=== PATIENT | female | born 1945 | race Caucasian/White ===

== ENCOUNTER 2016-03-03 07:28 | Emergency (ER) | payer OTHER ==
[~2016-03-03] VITALS: Ht 157.5 cm; Wt 68.0 kg
--- NOTE | ~2016-03-03 | EKG ---
[address] [address] ELECTROCARDIOGRAM REPORT Name: ALBERT MARTINEZ [id number] Admission: 03/03/16 Attend Phys: Discharge: 03/03/16 Date of : 41 Report #: [id number] THIS REPORT FOR: //name// [facility] ED Test Date: 2016-03-03 Test Time: 08:21:59 Pat Name: ALBERT MARTINEZ Department: Room: Gender: Board Attendant: ruby : 1945 Requested By: Kallie Santo Order Number: [id number] MD: Abebe Berg Measurements Intervals [place] Rate: 56 P: 67 [place]: 138 QRS: 47 QRSD: 117 T: 47 QT: 423 QTc: 409 Interpretive Statements Sinus rhythm No previous ECG available for comparison Electronically Signed On 03-03-2016 16:10:25 DISTILLING [employer]PARTMENT SUPERVISOR by Abebe Berg [email or web address] <ELECTRONICALLY SIGNED> By: Abebe Berg MD 03/03/16 1610 0821 0 Abebe Berg MD /EPI
[~2016-03-03 07:28] MED LIST: ALEVE220 M1 PO
[2016-03-03] MEDS ORDERED: SIMVASTATIN20 MG PO (07:38)
[2016-03-03 07:56] LABS: EOSINOPHILS 3.3 % (0.0-3.0); HEMATOCRIT 40.7 % (37.0-47.0); HEMOGLOBIN 13.5 gm/dL (12.0-15.0); LYMPHOCYTES 27.9 % (24.0-44.0); MCH 28.6 pg (26.0-34.0); MCHC 33.3 % (28.0-37.0); MCV 85.9 fL (80.0-100.0); MONOCYTES 10.2 % (1.0-8.0); PLATELET COUNT 222 thou/uL (150-400); POLYS 57.6 % (36.0-66.0); RBC 4.74 mil/uL (4.20-5.00); RDW 13.7 % (10.5-14.5); WBC 5.3 thou/uL (4.0-11.0)
[2016-03-03 07:57] LABS: MANUAL DIFF NO
[2016-03-03 07:59] LABS: CALCIUM 9.3 mg/dL (8.5-10.1); CREATININE 0.8 mg/dL (0.6-1.3); POTASSIUM 4.4 mmol/L (3.5-5.1)
[2016-03-03] MEDS ORDERED: PREDNISONE 20 M20 MG PO (08:13)
[2016-03-03] MEDS ORDERED: NORCO 5-325 TA1 EACH PO (09:01)
[2016-03-03 09:17] VITALS: BP 116/69
== END 2016-03-03 09:18 | disposition home or self-care (01) ==
LOC: ER 07:28
PROVIDERS: Emergency Medicine
DX: M54.12 Radiculopathy, cervical region (principal); G56.01 Carpal tunnel syndrome, right upper limb; Z85.3 Personal history of malignant neoplasm of breast

== ENCOUNTER 2018-10-18 14:32 | Inpatient (IN) | payer OTHER ==
[2018-10-18] VITALS (7 sets, daily range): BP systolic 111–1115; BP diastolic 53–69
[~2018-10-18] VITALS: Ht 160 cm; Wt 69.5 kg
[~2018-10-18 14:32] MED LIST changes: +NORCO 5-325 TA1 EACH PO; +PREDNISONE 20 M20 MG PO; +SIMVASTATIN20 MG PO
[2018-10-18 15:00] LABS: ABSOLUTE NEUTROPHILS 5.5 thou/uL (1.4-8.2); BASOPHILS 0.5 % (0.0-2.0); EOSINOPHILS 0.4 % (0.0-3.0); HEMATOCRIT 38.9 % (37.0-47.0); HEMOGLOBIN 12.8 gm/dL (12.0-15.0); LYMPHOCYTES 15.7 % (24.0-44.0); MCH 28.9 pg (26.0-34.0); MCHC 32.9 g/dL (28.0-37.0); MCV 87.8 fL (80.0-100.0); MONOCYTES 5.2 % (1.0-8.0); PLATELET COUNT 212 thou/uL (150-400); POLYS 78.2 % (36.0-66.0); RBC 4.43 mil/uL (4.20-5.00); RDW 13.7 % (10.5-14.5)
[2018-10-18 15:09] LABS: ANION GAP 9 mmol/L (7-16); BUN 21 mg/dL (7-18); CALCIUM 9.8 mg/dL (8.5-10.1); CHLORIDE 101 mmol/L (98-107); CO2 25 mmol/L (21-32); CREATININE 0.9 mg/dL (0.6-1.0); GLUCOSE 126 mg/dL (74-106); SODIUM 135 mmol/L (136-145)
[2018-10-18 15:20] LABS: ALBUMIN 4.2 g/dL (3.4-5.0); SGOT 20 U/L (15-37); SGPT 18 U/L (30-65); TOTAL BILIRUBIN 0.5 mg/dL (<0.1-1.0); TOTAL PROTEIN 7.5 g/dL (6.4-8.2); TROPONIN-I <0.06 ng/mL (<0.06)
[2018-10-18 15:50] LABS: URINE BILIRUBIN NEGATIVE (Negative); URINE BLOOD TRACE (Negative); URINE CLARITY CLEAR; URINE COLOR YELLOW; URINE GLUCOSE-RANDOM* NEGATIVE (Negative); URINE KETONES NEGATIVE (Negative); URINE LEUKOCYTES-REFLEX NEGATIVE (Negative); URINE NITRITE-REFLEX NEGATIVE (Negative); URINE PROTEIN (DIPSTICK) NEGATIVE (Negative); URINE UROBILINOGEN 0.2 E.U./dl (0.2-1.0)
[2018-10-18 17:30] LABS: ALBUMIN 4.3 g/dL (3.4-5.0); TOTAL PROTEIN 7.2 g/dL (6.4-8.2)
[2018-10-18 18:14] LABS: TSH 1.761 uIU/mL (0.358-3.740)
--- NOTE | 2018-10-18 23:33 | NUR ---
PATIENT WAS A NEW ADMISSION TOT HE UNIT TODAY. SHE ARRIVED LATE INTO DAY SHIFT AND THIS NURSE IS COMPLETING ALL TASKS NOT COMPLETED BY DAY STAFF. PATIENT IS ALERT AND ORIENTED AND ABLE TO COMPLETE ADMISSION AND PARTICIPATE IN CARE. NURSE TO COMPLETE ADMISSION AND INITIATE PLAN OF CARE.
[2018-10-19 05:27] VITALS: BP 120/62
[2018-10-19 06:09] LABS: HEMOGLOBIN 11.7 gm/dL (12.0-15.0); MCH 29.1 pg (26.0-34.0); MCHC 33.3 g/dL (28.0-37.0); MCV 87.4 fL (80.0-100.0); RBC 4.01 mil/uL (4.20-5.00); RDW 13.8 % (10.5-14.5); WBC 6.1 thou/uL (4.0-11.0)
[2018-10-19 06:22] LABS: CALCIUM 8.8 mg/dL (8.5-10.1); CREATININE 0.9 mg/dL (0.6-1.0); MAGNESIUM 2.1 mg/dL (1.8-2.4); POTASSIUM 3.5 mmol/L (3.5-5.1)
[2018-10-19 07:23] VITALS: BP 120/62
--- NOTE | 2018-10-19 07:48 | EKG ---
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[employer]: : 1945 Requested By: Darrick Pa Order Number: [id number] MD: Jalen Su Measurements Intervals [place] Rate: 70 P: 72 [place]: 149 QRS: 44 QRSD: 116 T: 33 QT: 413 QTc: 446 Interpretive Statements Sinus rhythm Right ventricular conduction delay Baseline wander in lead(s) II,III Compared to ECG 03/03/2016 08:21:59 No significant change was found Electronically Signed On 10-19-2018 7:47:48 CDT by Jalen Su [email or web address] ��������������������������������������������� <ELECTRONICALLY SIGNED> ���������������������������������������� By: Jalen Su MD, [facility] ��������������������������������������������� 10/19/18 0747 1443 1443 Jalen Su MD, [facility] /EPI
--- NOTE | 2018-10-19 09:44 | 2DMMODE ---
[facility] [address] [place] [address] 2 D/M-MODE ECHOCARDIOGRAM Name: ALBERT MARTINEZ Michelet Room #: 362-P [facility] IN ..#: [id number] ������������� Admission: 10/18/18 ������������� Attend Phys: Angel Richard, Discharge: ��� ������������� ��� Date of : 41 Date of Service: 10/19/18 0944 �� Report #: [id number] �������� ��������������������������������������������[id number] THIS REPORT FOR: //name// APPROVED REPORT Study performed: 10/19/2018 09:01:26 EXAM: Comprehensive 2D, Doppler, and color-flow Echocardiogram Patient Location: Bedside Room #: [facility] Status: routine BSA: 1.71 HR: 64 bpm BP: 120/62 mmHg Rhythm: NSR Other Information Study Quality: Adequate Indications Presyncope 2D Dimensions RVDd: 52.12 mm IVSd: 7.73 (7-11mm) LVOT Diam: 19.01 (18-24mm) LVDd: 52.39 mm PWd: 8.41 (7-11mm) Ascending Ao: 31.86 (22-36mm) LVDs: 34.79 (25-40mm) Aortic Root: 30.56 mm Volumes Left Atrial Volume (Systole) Single Plane 4CH: 63.79 mL Single Plane 2CH: 46.29 mL LA ESV Index: 35.00 mL/m2 Aortic Valve AoV Peak Leodan.: 1.86 m/s AO Peak Gr.: 13.84 mmHg LVOT Max P.52 mmHg LVOT Max V: 1.37 m/s JENNIFER Vmax: 2.09 cm2 AI Vmax: 4.11 m/s AI Hayes: 2.07 m/s2 AI PHT: 575.39 ms Mitral Valve [facility] [address] [place] [address] 2 D/M-MODE ECHOCARDIOGRAM Name: MICHELLEALBERT Michelet Room #: 362-[facility] IN ..#: [id number] ������������� Admission: 10/18/18 ������������� Attend Phys: Angel Richard, Discharge: ��� ������������� ��� Date of : 41 Date of Service: 10/19/18 0944 �� Report #: [id number] �������� ��������������������������������������������[id number] E/A Ratio: 2.1 MV Decel. Time: 216.13 ms MV E Max Leodan.: 1.34 m/s MV A Leodan.: 0.65 m/s MV PHT: 62.68 ms IVRT: 87.66 ms Pulmonary Valve PV Peak Leodan.: 1.00 m/s PV Peak Gr.: 4.04 mmHg Pulmonary Vein P Vein S: 0.62 m/s P Vein A: 0.24 m/s P Vein D: 0.60 m/s P Vein A Dur.: 101.5 msec P Vein S/D Ratio: 1.03 Tricuspid Valve TR Peak Leodan.: 2.74 m/s TR Peak Gr.: 30.00 mmHg PA Pressure: 40.00 mmHg Left Ventricle The left ventricle is normal size. There is normal LV segmental wall motion. There is normal left ventricular wall thickness. The left ventricular systolic function is normal. The left ventricular ejection fraction is within the normal range. LVEF is 60-65%. Left ventricular filling pattern is normal for age. Right Ventricle Right ventricle is dilated. The right ventricular systolic function is normal. Atria Left atrium is dilated. Right atrium is dilated. Aortic Valve The aortic valve is normal in structure. Mild aortic regurgitation. There is no aortic valvular stenosis. Mitral Valve The mitral valve is normal in structure. Mild to moderate mitral regurgitation. No evidence of mitral valve stenosis. Tricuspid Valve The tricuspid valve is normal in structure. There is moderate tricuspid regurgitation. The right atrial pressure is estimated at [address] [address] 2 D/M-MODE ECHOCARDIOGRAM Name: ALBERT MARTINEZ Michelet Room #: 362-P [facility] IN [facility]#: [id number] ������������� Admission: 10/18/18 ������������� Attend Phys: Angel Richard, Discharge: ��� ������������� ��� Date of : 41 Date of Service: 10/19/18 0944 �� Report #: [id number] �������� ��������������������������������������������[id number] Pulmonic Valve The pulmonary valve is normal in structure. There is no pulmonic valvular regurgitation. Great Vessels The aortic root is normal in size. IVC is not well visualized. Pericardium There is no pericardial effusion. <Conclusion> The left ventricle is normal size. There is normal left ventricular wall thickness. The left ventricular systolic function is normal. Right ventricle is dilated. Left atrium is dilated. Right atrium is dilated. Mild aortic regurgitation. Mild to moderate mitral regurgitation. There is moderate tricuspid regurgitation. The right atrial pressure is estimated at 35 mmHg. ��������������������������������������������� <ELECTRONICALLY SIGNED> ���������������������������������������� By: Giovanny Caban MD ��������������������������������������������� 10/19/18943 3 3 Giovanny Caban MD /INF
--- NOTE | 2018-10-19 15:38 | NUR ---
INITIAL ASSESSMENT/DISCHARGE NOTE: Received high risk nursing referral. SW reviewed chart and spoke with nursing and attending physician. Pt was admitted from home due to near syncopal episode. Pt had echo earlier today. SW met with pt at bedside. Introduced role of SW. Pt is alert/orientated x 4. Pt reports she lives at home alone. Prior to admission, pt was independent with ADLs. No hx of HH services or SNF/Rehab placement. Pt's PCP is Dr. Patricio Cramer. Pt may d/c home later today and will have transportation home. No SW discharge needs identified, but is available to assist should needs arise.
[2018-10-19 16:05] VITALS: BP 120/62
--- NOTE | 2018-10-19 16:09 | NUR ---
pt is A&OX3, PT'S VS are stable, pt denies pain , sob and dizziness today,pt will D/C to home today.
[2018-10-19 16:12] VITALS: BP 134/68
--- NOTE | 2018-10-19 17:09 | NUR ---
RN has giving D/C teaching, pt understands well, pt was D/C to home at 1705pm.
--- NOTE | 2018-10-20 08:48 | HC ---
[facility] [place] [address] CONSULTATION Name: ALBERT MARTINEZ Michelet Room #: 362-[facility] IN .R.#: [id number] Admission: 10/18/18 ������������������ Attend Phys: Angel Richard MD Discharge: 10/19/18 ������������������ Date of : 41 Report #: [id number] THIS REPORT FOR: //name// CC: Angel Cramer DATE OF SERVICE: 10/18/2018 INDICATION: Near syncope. HISTORY OF PRESENT ILLNESS: This 73-year-old female with a history of hyperlipidemia, GERD and rheumatoid arthritis, presenting with lightheadedness and weakness. She woke up this morning feeling generalized malaise, intermittent lightheadedness and a flushing sensation. She did go to christianity, still felt this way. It was not worse with standing. She denies any chest pains, shortness of breath or palpitations. Afterwards, she went to visit her mother at the custodial. She continued to have these symptoms. They checked her vital signs, noted to have an elevated blood pressure as well as heart rate. In the ER, her heart rate has been within normal limits. She still has this hot sensation. There is no history of fever, nausea or diarrhea. PAST MEDICAL HISTORY: Positive for hyperlipidemia, GERD, rheumatoid arthritis and breast cancer. Denies any diabetes mellitus or hypertension. ALLERGIES: None. MEDICATIONS: At home includes simvastatin and Prilosec. SOCIAL HISTORY: Denies tobacco use, denies alcohol use. Drinks 10 cups of coffee a day. FAMILY HISTORY: Negative for premature CAD. REVIEW OF SYSTEMS: A full 10-point review of systems performed. Only the pertinent positives and negatives are described in the HPI. PHYSICAL EXAMINATION: VITAL SIGNS: Blood pressure is 130/60, heart rate is 70 beats per minute. GENERAL APPEARANCE: An elderly appearing female, in no acute distress. HEENT: Normocephalic, atraumatic. Oral mucosa moist. NECK: Supple. LUNGS: Clear to auscultation. CARDIAC: Regular rate and rhythm, S1, S2 positive. ABDOMEN: Soft, nontender. EXTREMITIES: No edema, no cyanosis. NEUROLOGIC: Alert and oriented x 3. [facility] [address] [place] [address] CONSULTATION Name: ALBERT MARTINEZ Room #: 362-P [facility] IN [facility].#: [id number] Admission: 10/18/18 ������������������ Attend Phys: Angel Richard MD Discharge: 10/19/18 ������������������ Date of : 41 Report #: [id number] ECG reveals sinus rhythm, nonspecific ST segment abnormality. LABORATORY VALUES: White count 7.0, hemoglobin 12.8, creatinine 0.9, BUN is 21. Troponin is negative. ASSESSMENT AND PLAN: 1. Near syncope, probably vasovagal mediated. She offers no complaints of angina or dyspnea. Her blood pressure has been within normal limits while hospitalized. The plan is to check orthostatics. She may have a component of dehydration as she drinks 10 cups of caffeine per day. I did recommend lowering the dose. We will proceed with an echocardiogram and observe on telemetry for now. 2. Hypercholesterolemia, continue with statin therapy. 3. Arthritis, continue with NSAIDs. ��������������������������������������������� <ELECTRONICALLY SIGNED> ���������������������������������������� By: Giovanny Caban MD ��������������������������������������������� 10/20/1848 1939 9 Giovanny Caban MD /nt
== END 2018-10-19 17:10 | disposition home or self-care (01) | DRG 312 ==
LOC: ER 14:32 → EROBS 16:15 → 3W 16:15 → ENTRNSPT 10-19 16:46 → 3W 10-19 17:10
PROVIDERS: Emergency Medicine; ADMIT Internal Medicine
DX: R55 Syncope and collapse (principal); E78.5 Hyperlipidemia, unspecified; K21.9 Gastro-esophageal reflux disease without esophagitis; M06.9 Rheumatoid arthritis, unspecified; E78.00 Pure hypercholesterolemia, unspecified; M19.90 Unspecified osteoarthritis, unspecified site; E53.8 Deficiency of other specified B group vitamins; Z87.891 Personal history of nicotine dependence; Z85.3 Personal history of malignant neoplasm of breast; Z79.899 Other long term (current) drug therapy; Z88.5 Allergy status to narcotic agent; Z88.8 Allergy status to other drugs, medicaments and biological substances
CPT/HCPCS: 10879

== ENCOUNTER 2020-04-18 14:41 | Observation (INO) | payer OTHER ==
[~2020-04-18] VITALS: Ht 154.9 cm; Wt 72.6 kg
[2020-04-18 14:41] VITALS: BP 129/49
[2020-04-18 15:06] LABS: ABSOLUTE NEUTROPHILS 5.4 thou/uL (1.4-8.2); EOSINOPHILS 0.3 % (0.0-3.0); HEMATOCRIT 38.6 % (37.0-47.0); HEMOGLOBIN 12.6 gm/dL (12.0-15.0); LYMPHOCYTES 14.3 % (24.0-44.0); MCH 28.6 pg (26.0-34.0); MCHC 32.6 g/dL (28.0-37.0); MCV 87.8 fL (80.0-100.0); MONOCYTES 4.5 % (1.0-8.0); PLATELET COUNT 242 thou/uL (150-400); POLYS 79.9 % (36.0-66.0); RDW 14.5 % (10.5-14.5); WBC 6.8 thou/uL (4.0-11.0)
[2020-04-18 15:17] LABS: ANION GAP 4 mmol/L (7-16); BUN 27 mg/dL (7-18); CALCIUM 9.3 mg/dL (8.5-10.1); CHLORIDE 102 mmol/L (98-107); CO2 28 mmol/L (21-32); CREATININE 1.1 mg/dL (0.6-1.0); GLUCOSE 147 mg/dL (74-106); POTASSIUM 4.1 mmol/L (3.5-5.1); SODIUM 134 mmol/L (136-145)
[2020-04-18 15:27] LABS: ALBUMIN 4.1 g/dL (3.4-5.0); DIRECT BILIRUBIN 0.1 mg/dL (<0.1-0.2); SGOT 18 U/L (15-37); SGPT 21 U/L (30-65); TOTAL BILIRUBIN 0.5 mg/dL (0.2-1.0); TOTAL PROTEIN 7.6 g/dL (6.4-8.2); TROPONIN-I <0.06 ng/mL (<0.06)
--- NOTE | 2020-04-18 16:19 | EKG ---
[address] [address] ELECTROCARDIOGRAM REPORT Name: ALBERT MARTINEZ Room #: [employer] Silvana#: [id number] Admission: 04/18/20 Attend Phys: Discharge: Date of : 41 Report #: [id number] [facility] ED Test Date: 2020-04-18 Test Time: 14:45:39 Pat Name: ALBERT MARTINEZ Department: Room: Gender: F Field Coordinator: SANJUANA : 1945 Requested By: Nell Singh Order Number: [id number] MD: Eleuterio Moore Measurements Intervals [place] Rate: 74 P: 82 [place]: 143 QRS: 34 QRSD: 117 T: 41 QT: 394 QTc: 438 Interpretive Statements Sinus rhythm Compared to ECG 10/18/2018 14:43:57 No significant change Electronically Signed On 04-18-2020 16:19:38 WATER [employer]AX[employer] BOAT MATE by Eleuterio Moore [email or web address] <ELECTRONICALLY SIGNED> By: Eleuterio Moore MD, [facility] 04/18/20 1619 1445 1445 Eleuterio Moore MD, FACC /EPI
[2020-04-18 16:26] LABS: URINE BILIRUBIN NEGATIVE (Negative); URINE BLOOD TRACE (Negative); URINE CLARITY CLEAR; URINE COLOR YELLOW; URINE GLUCOSE-RANDOM* NEGATIVE (Negative); URINE KETONES NEGATIVE (Negative); URINE LEUKOCYTES-REFLEX NEGATIVE (Negative); URINE NITRITE-REFLEX NEGATIVE (Negative); URINE PROTEIN (DIPSTICK) NEGATIVE (Negative); URINE SPECIFIC GRAVITY 1.025 (1.005-1.035); URINE UROBILINOGEN 0.2 E.U./dl (0.2-1.0)
[2020-04-18 19:36] VITALS: BP 124/70
[2020-04-18 19:49] VITALS: BP 135/80
[2020-04-18 20:48] VITALS: BP 134/59
[2020-04-18] MEDS ORDERED: CELEXA 10 MG TA10 M1 PO (23:11)
[2020-04-18] MEDS ORDERED: OMEPRAZOLE40 MG PO ×2 (23:12→23:13)
[2020-04-18] MEDS ORDERED: CHILDREN'S ASPI81 M1 PO (23:15)
[2020-04-18] MEDS ORDERED: CALCIUM 500 +1 EAC5 PO (23:17)
[2020-04-18] MEDS ORDERED: COLACE100 MG PO (23:18)
[2020-04-18] MEDS ORDERED: VITAMIN D3125 MC1 PO (23:19)
[2020-04-19 04:00] VITALS: BP 138/55
[2020-04-19 06:11] LABS: ALBUMIN 3.3 g/dL (3.4-5.0); CALCIUM 8.7 mg/dL (8.5-10.1); PHOSPHORUS 2.8 mg/dL (2.5-4.9); POTASSIUM 3.7 mmol/L (3.5-5.1)
[2020-04-19 09:36] VITALS: BP 138/55
[2020-04-19 09:40] VITALS: BP 150/62
== END 2020-04-19 12:16 | disposition home or self-care (01) ==
LOC: ER 14:41 → EROBS 17:42 → 4W 17:42
PROVIDERS: Emergency Medicine; ADMIT Hospitalist; ATTEND Hospitalist
DX: E86.0 Dehydration (principal); R20.3 Hyperesthesia; E78.5 Hyperlipidemia, unspecified; M06.9 Rheumatoid arthritis, unspecified; R55 Syncope and collapse; Z79.899 Other long term (current) drug therapy; Z85.3 Personal history of malignant neoplasm of breast; Z79.82 Long term (current) use of aspirin

== ENCOUNTER → 2020-05-12 | Outpatient (CLI) | payer OTHER ==
[~2020-05-12] MED LIST changes: +CALCIUM 500 +1 EAC5 PO; +CELEXA 10 MG TA10 M1 PO; +CHILDREN'S ASPI81 M1 PO; +COLACE100 MG PO; +OMEPRAZOLE40 MG PO; +VITAMIN D3125 MC1 PO
== END ==
LOC: SJCVC 15:35
PROVIDERS: ATTEND Internal Medicine Cardiovascular Disease
DX: R94.31 Abnormal electrocardiogram [ECG] [EKG] (principal); R55 Syncope and collapse; R06.00 Dyspnea, unspecified; E78.00 Pure hypercholesterolemia, unspecified; K21.9 Gastro-esophageal reflux disease without esophagitis; E78.5 Hyperlipidemia, unspecified; M81.0 Age-related osteoporosis without current pathological fracture; G56.00 Carpal tunnel syndrome, unspecified upper limb; Z79.82 Long term (current) use of aspirin; Z79.899 Other long term (current) drug therapy; Z87.891 Personal history of nicotine dependence

== ENCOUNTER → 2020-05-26 | Outpatient (CLI) | payer OTHER | LOC: SJCVCIMAG 08:20 | PROVIDERS: ATTEND Internal Medicine Cardiovascular Disease | DX: I49.3 Ventricular premature depolarization (principal); R00.0 Tachycardia, unspecified; R55 Syncope and collapse; R06.00 Dyspnea, unspecified; E78.00 Pure hypercholesterolemia, unspecified; K21.9 Gastro-esophageal reflux disease without esophagitis; E78.5 Hyperlipidemia, unspecified; M19.90 Unspecified osteoarthritis, unspecified site; M54.12 Radiculopathy, cervical region; Z87.891 Personal history of nicotine dependence; Z79.899 Other long term (current) drug therapy; Z79.82 Long term (current) use of aspirin ==

== ENCOUNTER → 2020-09-18 | Outpatient (CLI) | payer OTHER | LOC: CAT 09:10 | PROVIDERS: ATTEND Nurse Practitioner | DX: R59.0 Localized enlarged lymph nodes (principal) ==

== ENCOUNTER → 2020-09-25 | Outpatient (CLI) | payer OTHER | LOC: CAT 08:46 | PROVIDERS: ATTEND Internal Medicine Hematology & Oncology | DX: J98.11 Atelectasis (principal); J43.8 Other emphysema; M47.895 Other spondylosis, thoracolumbar region; R59.0 Localized enlarged lymph nodes ==

== ENCOUNTER → 2020-10-04 | Outpatient (CLI) | payer OTHER ==
[2020-10-04 13:15] LABS: CREATININE 1.2 mg/dL (0.6-1.0)
== END ==
LOC: MRI 08:07
PROVIDERS: ATTEND Internal Medicine Hematology & Oncology
DX: I67.82 Cerebral ischemia (principal); R59.0 Localized enlarged lymph nodes; R41.3 Other amnesia

== ENCOUNTER → 2020-10-06 | Outpatient (CLI) | payer OTHER ==
[~2020-10-06] VITALS: Ht 154.9 cm; Wt 70.5 kg
[2020-10-06] VITALS (8 sets, daily range): BP systolic 127–161; BP diastolic 45–86
[~2020-10-06] MED LIST changes: +HYDROCODON-ACE1 EAC7 PO; +ONE-A-DAY WOMENS PO; +TYLENOL EXTRA500 MG PO
[2020-10-06 09:41] LABS: HEMATOCRIT 35.5 % (37.0-47.0); HEMOGLOBIN 11.6 gm/dL (12.0-15.0); MCH 28.4 pg (26.0-34.0); MCHC 32.7 g/dL (28.0-37.0); MCV 86.7 fL (80.0-100.0); RBC 4.1 mil/uL (4.20-5.00); RDW 13.9 % (10.5-14.5)
[2020-10-06 09:55] LABS: APTT 27.1 Seconds (24.5-32.8); PROTIME 10.9 Seconds (10.5-12.1)
--- NOTE | 2020-10-19 15:08 | PATH ---
[facility] [address] [place] [address] PATHOLOGY RPT PROCEDURE Name: ALBERT MARTINEZN Room #: REG JOSEF Melendez.#: [id number] Admission: 10/06/20 Date of : 41 Discharge: Report #: [id number] Path Case #: [id number] LCA Accession Number: [id number] . 01 Material submitted: . retroperitoneum - RT RETROPERITONEAL. Modifiers: right . 01 Clinician provided ICD-10: L59.9 . 01 Clinical history: . ABDOMINAL LYMPHADENOPATHY . 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 (CLW:tommy; 10/11/2020) AZJ 10/11/2020 1214 Local . 02 Comment: Sections show needle core biopsy fragments of lymph node with effaced lymph node architecture. The atypical lymphocytes are medium to focally large in size with irregular nuclear contours and variable amounts of eosinophilic to cleared out cytoplasm. Scattered mitotic figures and single cell necrosis are identified. The atypical lymphocytes infiltrate through a fibrous stroma and adipose tissue. . To confirm the flow cytometry findings and to identify cells in a tissue architectural context, properly controlled immunohistochemical stains are performed. Block A1: CD20 - Diffusely reactive; PAX5 - Diffusely reactive; CD3 - Stains admixed T-cells; CD10 - Diffusely reactive; BCL6 - Diffusely reactive; BCL2 - Diffusely reactive. . Block A2: MUM1 - Nonreactive; Cyclin D1 - Lacks diffuse nuclear reactivity; CD21 - Nonreactive; CD23 - Nonreactive; Ki-67 - Proliferative index of approximately 70%. . Flow cytometric immunophenotypic analysis was performed at [facility]. The interpretation is "abnormal/monotypic CD10 positive B-cell [address] [address] PATHOLOGY RPT PROCEDURE Name: MICHELLEALBERT JOY Room #: REG JOSEF Pina#: [id number] Admission: 10/06/20 Date of : 41 Discharge: Report #: [id number] Path Case #: [id number] population (25% of sample) with intermediate/increased cell size." There are 25% abnormal B-cells that have an intermediate/increased cell size and are characterized as CD45 pos, CD5 neg, CD10 pos, CD19 pos, CD20 pos, CD23 neg, CD30 neg, CD38 neg, CD43 neg, FMC7 pos, HLA-DR pos, and surface lambda pos. there are 42% remaining lymphocytes. Of the remaining lymphocytes, there are 4% polyclonal B-cells. T-cells have a CD4/CD8 ratio of 2.0 and no aberrant T-cell antigen expression. Please see separate flow cytometry report from [facility] ([id number]). . Overall the diagnosis is lymph node with involvement by high-grade B-cell lymphoma. The differential diagnosis includes diffuse large B-cell lymphoma, germinal center cell subtype, high-grade B-cell lymphoma with genetic abnormalities and high-grade B-cell lymphoma, NOS. The case has been sent for an aggressive B-cell lymphoma FISH panel. Clinical and radiographic correlation is required. . The case is co-reviewed with Dr. Caterina Cancino and Dr. Fernando Jimenes who agree on 10/11/2020. The case is discussed with Dr. Malagon on 10/11/2020 at 1545. (CLW:tommy; 10/11/2020) . 02 Addendum: . This addendum is to document additional gross description and the flow cytometry report (see below). . A portion of the specimen was received fresh in RPMI and sent for flow cytometric immunoperoxidase studies. . The final diagnosis remains unchanged. . (CLW:tommy; 10/12/2020) . . Special studies report received from [facility], [address] [place] [address], [address], [place], [address], on case [id number], labeled with their number [id number], dated 10/09/2020. . Flow Cytometry: Hematologic Neoplasia Assessment . Clinical History Evaluation for lymphadenopathy . Indication for Study Evaluation for lymphadenopathy . Specimen Tissue, Retroperitoneal, right . [address] [address] PATHOLOGY RPT PROCEDURE Name: ALBERT MARTINEZ JOY Room #: JANUSZ Pina#: [id number] Admission: 10/06/20 Date of : 41 Discharge: Report #: [id number] Path Case #: [id number] Viability 69% (7AAD exclusion) . Interpretation Tissue, Retroperitoneal, right: - Abnormal/ monotypic CD10+ B-cell population (25% of sample) with intermediate/increased cell size (see comments). . Comments The flow cytometry results are consistent with a B-cell lymphoma with features of germinal center/follicular origin. The differential diagnosis includes follicular lymphoma, Burkitt lymphoma and diffuse large B-cell lymphoma. The increased cell size favors a high grade process. Correlation with all available clinical, laboratory, and morphologic data is necessary for further classification of this process. Aggressive B-cell lymphoma FISH is available if needed. . Populations Analyzed Abnormal B-cells: 25% Scatter properties compatible with intermediate/ increased cell size, cells characterized as: CD45+, CD5-, CD10+, CD19+, CD20+, CD23-, CD30-, CD38-, CD43-, FMC7+, HLA-DR+, sIg lambda+ Remaining 42% B-cells: 4%, polytypic/polyclonal sIg light chain Lymphocytes: pattern T-cells: no significant abnormalities of the markers tested CD4:CD8: 2.0 NK cells: 2.3% Granulocytes: 1% Present Monocytes/ 0% Present Histiocytes: CD45 Negative 32% No significant reactivity with the markers tested Events/Debris: (may represent non-hematolymphoid cells, degenerated cells, debris, unlysed red blood cells, etc.) . Morphologic Evaluation A slide was reviewed for quality assurance auditor purposes only. . Specimen Description Cell Yield: 0.21 x 10 and 6 Viability is 69%. Flow cytometric data derived from samples with <80% viability needs to be interpreted within the context of all clinical, laboratory, and morphologic data available. . Reagent(s) Used CD2, CD3, CD4, CD5, CD7, CD8, CD10, CD11b, CD19, CD20, CD23, CD30, CD38, CD43, CD45, CD56, CD57, FMC-7, HLA-DR, kappa, lambda [facility] [address] [place] [address] PATHOLOGY RPT PROCEDURE Name: ALBERT MARTINEZ JOY Room #: REG JOSEF MarkNallely.#: [id number] Admission: 10/06/20 Date of : 41 Discharge: Report #: [id number] Path Case #: [id number] . at [facility], [employer]. Carina Hoffman MD Pathologist . . Intended Use Flow cytometry is optimally used to immunophenotypically characterize abnormal populations when they are detected. Negative flow cytometry results do not exclude lymphoma or neoplasia. Possible false negative flow cytometry results may occur in, but are not limited to, the following: neoplastic cells in Hodgkin lymphoma are not typically adequately represented by routine clinical flow cytometry; neoplastic cells may be lost or inadequately represented due to degeneration, sample processing, sampling artifact, or patchy involvement; plasma cells are typically underrepresented by flow cytometry; immature cells/blasts may be underrepresented due to hemodilution; myeloproliferative disorders and low grade myelodysplasia may not have immunophenotypic abnormalities or increased blasts. Correlation with all available clinical, laboratory, and morphologic data is always necessary to assess for the possibility of false negative flow cytometry results and to establish a diagnosis. Each marker in this analysis was used to assess for potential antigenic abnormalities or to evaluate detected abnormalities. . Any image or images that accompany this report are technical sales representative images only and should not be used to render a diagnosis. . Disclaimer(s) This test was developed and its performance characteristics determined by [facility], [employer]. It has not been cleared or approved by the Food and Drug Administration. . Performing Labs [facility] is a business unit of [employer] a wholly-owned subsidiary of [employer]. . This test was performed at [facility]. at [address], [place], [address] - [place] Knitter: Christiano Vasquez MD. . For inquiries, the physician may contact Lab: [phone] . A complete copy of the report is on file. . Professional services performed by [facility]. at [address], [place] [address]. [place] [address] PATHOLOGY RPT PROCEDURE Name: ALBERT MARTINEZ JOY Room #: REG CLAlexander iPna#: [id number] Admission: 10/06/20 Date of : 41 Discharge: Report #: [id number] Path Case #: [id number] [facility]. at [address], [place] [address]. . (CLW:daniel 10/10/2020) . QTP/10/12/2020 Addendum Electronically Signed by Alisa Farias MD, Pathologist Addendum #2: Special studies report received from [facility], [address] [place] [address], [address], [place], [address], on case [id number], labeled with their number [id number], dated 10/18/2020. . Fluorescence in situ Hybridization (FISH) Report [employer] Analysis . RESULT: An assay specific abnormality was detected by aggressive B-cell lymphoma FISH panel: BCL2 gene rearrangement . Specimen Type: Retroperitoneum, Right . Indication for Study: High Grade large B-cell Lymphoma. . INTERPRETATION: Fluorescence in situ hybridization (FISH) analysis was performed on this patient's paraffin embedded tissue specimen using DNA probes for aggressive B-cell lymphoma panel. One hundred interphase nuclei were examined for each probe and the signal patterns revealed the following: . Positive for a rearrangement of BCL2 gene (66.0% of nuclei). . The signal pattern obtained with the remaining probes did not differ significantly from the normal controls. . Translocations involving the BCL2 gene [the molecular lesion often associated with the t(14;18)] are found in 80-90% of cases of follicular lymphoma, but may also be observed in 30% of cases of large B-cell lymphoma. . Genetic changes other than those assayed in this study cannot be ruled out on the basis of this testing. Correlation with cytogenetic, clinical and hematopathological findings is suggested for a complete interpretation of the results. Follow-up FISH analysis may be considered as a means to monitor the clinical course of the disease. . The following [employer] FISH analysis was performed on this patient's specimen: Probe Detection Parameters Result [address] [address] PATHOLOGY RPT PROCEDURE Name: ALBERT MARTINEZ JOY Room #: REG [facility].#: [id number] Admission: 10/06/20 Date of : 41 Discharge: Report #: [id number] Path Case #: [id number] BCL2 (18q21) Detects a rearrangement Detected nuc brendan(BCL2x2)(5'BCL2 of the BCL2 gene sep 3'BCL2x1)(66/100) MYC (8q24) Detects a rearrangement Not Detected nuc brendan(5'MYC,3'MYC)x2 of the MYC gene (5'MYC con 3'MYCx2) (100) BCL6 (3q27) Detects a rearrangement Not Detected nuc brendan(5'BCL6,3'BCL6) of the BCL6 gene x2(5'BCL6 con 3'BCL6x2)(100) . . at [facility], [employer]. Nataliia Houston, Ph.D., [facility] Director of Cytogenetics and Molecular Oncology . Methodology: The patient specimen is processed onto a glass slide. Fluorescent DNA probe(s) is(are) applied to the cells on the slide under conditions of denaturation followed by hybridization. Stringency washes are applied and the slide is subsequently counterstained. A minimum of 100 interphase nuclei are analyzed unless otherwise indicated above. . Intended Use: This assay is considered qualitative and is not intended to be used as a measure of quantitative comparison. . Disclaimer(s): Any image(s) that accompany this report is/are a technical sales representative image(s) only and should not be used to render a diagnosis. This test was developed and its performance characteristics determined by [employer], [employer]. It has not been cleared or approved by the Food and Drug Administration. . Performing Labs: This Test was performed at [facility] at [address] [place] [address], [address]. [facility] is a business unit of [employer] a wholly-owned subsidiary of [employer]. . A complete copy of the report is on file. . Professional services performed by [facility] at [address], [place] [address]. Technical services performed by [facility], [employer]. at [address], [place] [address]. . (CLW:amj 10/18/2020) [address] [address] PATHOLOGY RPT PROCEDURE Name: ALBERT MARTINEZ Room #: REG [facility].#: [id number] Admission: 10/06/20 Date of : 41 Discharge: Report #: [id number] Path Case #: [id number] . [facility]/10/18/2020 Addendum Electronically Signed by Alisa Farias MD, Pathologist . 02 Electronically signed: . Alisa Farias MD, Pathologist NPI- [id number] . 01 Gross description: . The specimen is received in formalin, labeled "Albert Surface, right retroperitoneal". Received are five needle cores of pale dominguez tissue ranging in length from 0.4-1.0 cm, with each measuring 0.1 cm in diameter. The specimen is submitted entirely in cassettes A1 through A3. (CAA; 10/06/2020) QAC/QAC 10/11/2020 1212 Local . 02 Pathologist provided ICD-10: C85.13, R59.1 . 02 CPT . 630044, B03040, E09721, 006784 Specimen Comment: A courtesy copy of this report has been sent to [phone] Specimen Comment: Report sent to DR. GARCIA Performed at: [address] [facility], [place], [place] [id number] MD Grant Fierro MD Phone: [phone] Performed at: [address] [facility] [id number] MD Alisa Farias MD Phone: [phone]
== END | disposition home or self-care (01) ==
LOC: CAT 08:33
PROVIDERS: Radiology Diagnostic Radiology; ATTEND Internal Medicine Hematology & Oncology
DX: C85.13 Unspecified B-cell lymphoma, intra-abdominal lymph nodes (principal); R59.0 Localized enlarged lymph nodes; E78.5 Hyperlipidemia, unspecified; M19.90 Unspecified osteoarthritis, unspecified site; M81.0 Age-related osteoporosis without current pathological fracture; K21.9 Gastro-esophageal reflux disease without esophagitis; Z98.890 Other specified postprocedural states; Z79.899 Other long term (current) drug therapy; Z85.3 Personal history of malignant neoplasm of breast; Z90.49 Acquired absence of other specified parts of digestive tract; Z87.891 Personal history of nicotine dependence; Z88.8 Allergy status to other drugs, medicaments and biological substances; Z79.891 Long term (current) use of opiate analgesic; Z79.82 Long term (current) use of aspirin

== ENCOUNTER → 2020-10-23 | Outpatient (CLI) | payer OTHER ==
[~2020-10-23] VITALS: Ht 154.9 cm; Wt 69.4 kg
[2020-10-23 10:03] VITALS: BP 128/56
[2020-10-23 12:06] VITALS: BP 135/57
== END | disposition home or self-care (01) ==
LOC: SPEC 09:10
PROVIDERS: ATTEND Radiology Diagnostic Radiology
DX: Z45.2 Encounter for adjustment and management of vascular access device (principal); C85.90 Non-Hodgkin lymphoma, unspecified, unspecified site; E78.5 Hyperlipidemia, unspecified; M19.90 Unspecified osteoarthritis, unspecified site; M81.0 Age-related osteoporosis without current pathological fracture; K21.9 Gastro-esophageal reflux disease without esophagitis; Z98.890 Other specified postprocedural states; Z79.899 Other long term (current) drug therapy; Z85.3 Personal history of malignant neoplasm of breast; Z90.49 Acquired absence of other specified parts of digestive tract; Z87.891 Personal history of nicotine dependence; Z88.6 Allergy status to analgesic agent

== ENCOUNTER 2020-12-10 11:34 | Inpatient (IN) | payer OTHER ==
[~2020-12-10] VITALS: Ht 154.9 cm; Wt 62.1 kg
[2020-12-10 11:36] VITALS: BP 143/66
[2020-12-10 12:05] LABS: RBC 3.48 mil/uL (4.20-5.00); URINE BILIRUBIN NEGATIVE (Negative); URINE BLOOD 1+ (Negative); URINE CLARITY CLEAR; URINE COLOR YELLOW; URINE GLUCOSE-RANDOM* NEGATIVE (Negative); URINE KETONES 2+ (Negative); URINE LEUKOCYTES-REFLEX NEGATIVE (Negative); URINE NITRITE-REFLEX NEGATIVE (Negative); URINE PROTEIN (DIPSTICK) NEGATIVE (Negative); URINE UROBILINOGEN 0.2 E.U./dl (0.2-1.0)
[2020-12-10 12:10] LABS: CALCIUM 9.1 mg/dL (8.5-10.1); CREATININE 0.7 mg/dL (0.6-1.0); POTASSIUM 3.3 mmol/L (3.5-5.1)
[2020-12-10 12:11] LABS: HEMATOCRIT 30.8 % (37.0-47.0); MCH 28.7 pg (26.0-34.0); MCHC 32.4 g/dL (28.0-37.0); MCV 88.5 fL (80.0-100.0); PLATELET COUNT 194 thou/uL (150-400)
[2020-12-10 12:19] LABS: BACTERIA-REFLEX 1-9 Few /HPF (None Seen); CASTS None Seen /LPF (None Seen); CRYSTALS None Seen /LPF (None Seen); SQUAMOUS None Seen /LPF (0-3); URINE RBC 3-10 Few /HPF (NONE SEEN); URINE WBC-REFLEX None Seen /HPF (0-5)
[2020-12-10 12:22] LABS: ALBUMIN 3.7 g/dL (3.4-5.0); TOTAL BILIRUBIN 0.8 mg/dL (0.2-1.0); TOTAL PROTEIN 6.5 g/dL (6.4-8.2)
[2020-12-10 12:36] LABS: ABSOLUTE NEUTROPHILS 39.2 thou/uL (1.4-8.2); ANISOCYTOSIS 1+; METAMYELOCYTES 1 %; PLATELET ESTIMATE NORMAL
[2020-12-10 12:40] LABS: WBC 40.8 thou/uL (4.0-11.0)
[2020-12-10] MEDS ORDERED: ONDANSETRON HCL8 MG PO (13:17)
[2020-12-10] MEDS ORDERED: COMPAZINE10 MG PO (13:17)
[2020-12-10] MEDS ORDERED: NYSTATIN100000 UNI SW&SWALLOW (13:17)
[2020-12-10] MEDS ORDERED: ALLOPURINOL 30300 M1 PO (13:18)
[2020-12-10] MEDS ORDERED: MS CONTIN 30 MG30 M1 PO (13:18)
[2020-12-10] MEDS ORDERED: ROXICODONE15 MG PO (13:19)
[2020-12-10 19:01] VITALS: BP 140/53
[2020-12-10 19:08] VITALS: BP 147/51
[2020-12-10 20:10] VITALS: BP 131/49
[2020-12-11 00:16] VITALS: BP 134/62
--- NOTE | 2020-12-11 04:15 | NUR ---
RECEIVED CARE OF THIS PATIENT AT 1942 VIA CART FROM ED ACCOMPANIED BY ED CASIEL. PATIENT ALERT AND ORIENTED X4. UP WITH SBA ONLY. IV PATENT IN LAC. C/O BEING SHAKING AND ANXIOUS, MED GIVEN. C/O NAUSEA BUT NO VOMITING. DENIES PAIN. SLEPT OFF AND ON DURING NIGHT.
[2020-12-11 04:37] VITALS: BP 126/63
[2020-12-11 05:05] LABS: ABSOLUTE NEUTROPHILS 29.6 thou/uL (1.4-8.2); BASOPHILS 0.2 % (0.0-2.0); HEMATOCRIT 26.5 % (37.0-47.0); HEMOGLOBIN 8.8 gm/dL (12.0-15.0); LYMPHOCYTES 1.3 % (24.0-44.0); MCH 29.4 pg (26.0-34.0); MCHC 33.1 g/dL (28.0-37.0); MCV 88.8 fL (80.0-100.0); MONOCYTES 0.9 % (1.0-8.0); PLATELET COUNT 142 thou/uL (150-400); POLYS 97.6 % (36.0-66.0); RBC 2.98 mil/uL (4.20-5.00); RDW 20.2 % (10.5-14.5); WBC 30.3 thou/uL (4.0-11.0)
[2020-12-11 05:34] LABS: CALCIUM 8.5 mg/dL (8.5-10.1); CREATININE 0.6 mg/dL (0.6-1.0); MAGNESIUM 2.1 mg/dL (1.8-2.4); PHOSPHORUS 3.1 mg/dL (2.6-4.7); POTASSIUM 3.2 mmol/L (3.5-5.1)
--- NOTE | 2020-12-11 07:28 | EKG ---
[address] [place] [address] ELECTROCARDIOGRAM REPORT Name: ALBERT MARTINEZ Room #: 445-P ADM IN M.R.#: [id number] Admission: 12/10/20 Attend Phys: Sirisha Angulo MD Discharge: Date of : 41 Report #: [id number] [facility] ED Test Date: 2020-12-10 Test Time: 13:56:34 Pat Name: ALBERT MARTINEZ Department: Room: [facility] Gender: F Facility Maintenance Mechanic: JAMI : 1945 Requested By: Carroll Yeboah Order Number: [id number] MD: Eleuterio Moore Measurements Intervals [place] Rate: 71 P: 65 [place]: 179 QRS: 25 QRSD: 128 T: 32 QT: 455 QTc: 495 Interpretive Statements Sinus rhythm IVCD, consider atypical RBBB Compared to ECG 04/18/2020 14:45:39 No significant changes Electronically Signed On 12-11-2020 7:27:47 CDT by Eleuterio Moore [email or web address] <ELECTRONICALLY SIGNED> By: Eleuterio Moore MD, [facility] 12/11/20 0727 1356 1356 Eleuterio Moore MD, FACC /EPI
[2020-12-11 08:13] VITALS: BP 134/63
--- NOTE | 2020-12-11 08:51 | NUR ---
Chart review. Cm visited with chano at bedside. Intro to cm and dcp. She live home alone, independent when she is feeling ok. manage own medication. drives vehicle, no dme. Son put in a ramp. no steps. Goes to [facility] chemo, tx number 3 and feeling bad, so nauseated. no hh or rehab in the past. Cm letting her rest and passed on to bedside nursechano c/o nausea. Will cont following as needed for dc needs.
--- NOTE | 2020-12-11 14:24 | NUR ---
ASSUMED PT CARE AT 1100. PATIENT A&OX3-4, ABLE TO MAKE NEEDS KNOWN. PATIENT ABLE TO MAKE NEEDS KNOWN. PATIENT COMPLAINS OF NAUSEA, MEDICATED PER EMAR. IV REMAINS PATENT, FLUIDS INFUSING. PATIENT ON ROOM AIR. MEDICATIONS TAKEN WITHOUT ISSUE. FALL PRECAUTIONS ARE IN PLACE, CALL LIGHT WITHIN REACH.
--- NOTE | 2020-12-11 14:42 | NUR ---
COMPLETED CHART REVIEW AND SPOKE WITH PT. AND HER DAUGHTER IN THE ROOM. PT. IS DECLINING FORMAL OT EVALUATION AT THIS TIME. STATES SHE IS INDEP. FUNCTIONING WITH ADLS, IADLS, AND FUNCTIONAL MOBILITY WHEN SHE IS NOT NAUSEOUS/VOMITTING FROM CHEMO. STATES NO CONCERNS ABOUT RETURNING HOME AT D/C. DTR IN ROOM STATES SHE IS ABLE TO ASSIST PT. PRN AT HOME. OT IS SIGNING OFF PER PT. REQUEST.
[2020-12-11 18:16] VITALS: BP 137/58
--- NOTE | 2020-12-12 02:20 | NUR ---
PLEASANT LADY. UP WITH ASSIT X 1 TO BSC. AFEBRIE. DENIES N/V. PT JUST WANTED TO RELAX AND SLEEP, GIVEN SOME LORAZEPAM, SHE LATER ALSO ASKED FOR SOME PAIN MEDS WHICH SHE RECD SOME MORPHINE.CALL LIGHT WITHIN REACH.
[2020-12-12 04:46] VITALS: BP 140/69
[2020-12-12 07:26] VITALS: BP 134/74
--- NOTE | 2020-12-12 12:53 | HC ---
[facility] [place] [address] CONSULTATION Name: ALBERT MARTINEZN Room #: 445-P [facility] IN M.R.#: [id number] Admission: 12/10/20 Attend Phys: Sirisha Angulo MD Discharge: Date of : 41 Report #: [id number] THIS REPORT FOR: cc: Ivelisse Denis DNP, Mary E. DNP McElhinney, Christian C. MD ~ cc: Sirisha Angulo MD, Cisco Malagon MD HISTORY OF PRESENT ILLNESS: The patient is a 75-year-old female with history of B cell type lymphoma, began chemotherapy in October. She has now just received her third dose. Daughter is in the room, helpful with her history, although the patient is a good historian. The first two doses of chemotherapy she tolerated quite well. However, after third dose, was having significant nausea and vomiting, unable to keep any liquids down, which is a reason for GI consultation. The patient had been trying Zofran at home, which was not helpful. She has been losing weight, approximately 15 pounds since her diagnosis. She underwent an upper endoscopy 3 years ago as well as colonoscopy, polyps were removed. Upper endoscopy was reportedly negative. She has been on Prilosec 40 mg on a daily basis for many years for heartburn. She denies any heartburn, dysphagia. She denies any hematemesis. She does have a family history of colon cancer in her father. She was given Compazine earlier today and is feeling somewhat better. She has not had any emesis here since admission, but still feels somewhat nauseated. She states her bowel movements have been normal recently. She denies any blood in her stools. She denies any diarrhea or constipation. Currently, denies any chest pain or shortness of breath. No fevers or chills. PAST MEDICAL HISTORY: Lymphoma, history of anemia, depression, nausea and vomiting, breast cancer in 1990, previous appendectomy, arthritis. ALLERGIES: CODEINE. REVIEW OF SYSTEMS: Per HPI. MEDICATIONS ON ADMISSION: Zofran 8 mg p.r.n.; Celexa; omeprazole 40 mg daily; aspirin is listed, although her daughter reports she has not been taking this recently; calcium carbonate; vitamin D3; simvastatin; MS Contin; allopurinol; docusate; prednisone; multivitamin. FAMILY HISTORY: Positive for colon cancer in her father in his 50s. SOCIAL HISTORY: The patient with a history of 2 pack per day smoking for 24 years, quit in the past. She denies any alcohol use. PHYSICAL EXAMINATION: [facility] [address] [place] [address] CONSULTATION Name: ALBERT MARTINEZ [facility] Room #: 445-P [facility] IN ..#: [id number] Admission: 12/10/20 Attend Phys: Sirisha Angulo MD Discharge: Date of : 41 Report #: [id number] VITAL SIGNS: Temperature is 36.9, pulse rate is 68, respiratory rate 18, blood pressure 134/63. GENERAL: She is alert and oriented x 3, in no acute distress. HEENT: Sclerae nonicteric. Oropharynx clear. NECK: Supple, without lymphadenopathy. CARDIOVASCULAR: Regular rate and rhythm. CHEST: Clear to auscultation bilaterally. ABDOMEN: Soft, nontender, nondistended. Normoactive bowel sounds. EXTREMITIES: No cyanosis, clubbing or edema. LABORATORY DATA: WBC is 30.3, hemoglobin 8.8, platelet count 142. Sodium 141, potassium 3.2, chloride 107, bicarbonate 25, BUN 12, creatinine 0.6, glucose 108, calcium 8.5, phosphorus 3.4, magnesium 2.1. Total bilirubin 0.8, AST 20, ALT 33, alkaline phosphatase 75. Troponin 9. Total protein 6.5, albumin 3.7, lipase 116. CT scan of the abdomen and pelvis on 12/10 showing no acute process in the abdomen and pelvis, decreasing central mesenteric and retroperitoneal lymphadenopathy. CT of the chest, no acute cardiopulmonary process. ASSESSMENT AND PLAN: Nausea, vomiting, suspect this is related to chemotherapy as there appears to be a pattern. Patient is already on Prilosec 40 mg on a daily basis. Since she has been on this for a long period of time, she had an upper endoscopy 3 years ago that was reportedly negative. Agree with trying different antiemetics, Zofran was tried at home, which was not helpful; Compazine may be working better, she had her first dose this afternoon. If this is not helpful, could consider other options including Reglan, Phenergan or even scopolamine patch. There are no signs of bleeding. We will continue to follow. CT scan shows no evidence of obstruction. Thank you for allowing me to participate in her care. <ELECTRONICALLY SIGNED> By: Ra Gonzalez MD 12/12/20 1253 1602 941 Ra Gonzalez MD /nt
--- NOTE | 2020-12-12 14:44 | NUR ---
ASSUMED PT CARE THIS AM. PT A&OX4, ABLE TO MAKE ALL NEEDS KNOWN. PATIENT REMAINS CONTINENT, AND US UP WITH STANDBY ASSIST TO THE BEDSIDE COMMODE. PATIENT IS ON ROOM AIR. PATIENT WAS MEDICATED FOR NAUSEA THIS AM. IV REMAINS PATENT. MEDICATIONS TAKEN WITHOUT ISSUE. FALL PRECAUTIONS ARE IN PLACE, CALL LIGHT WITHIN REACH.
--- NOTE | 2020-12-12 16:20 | NUR ---
Discuss during los with hospitalist today, possible will be ready for dc in few days with home health. Will cont following as needed for dc needs.
[2020-12-12 16:32] VITALS: BP 139/73
[2020-12-12 20:16] VITALS: BP 136/69
--- NOTE | 2020-12-13 04:11 | NUR ---
Assumed pt care at around 1915 hrs. Pt stated "take this shakiness away and help me with the N/V". Pt started on scopolamine patch. She was given lorazepam for her nerves. Denies pain. Up to BSC steadily, had some small stool, voiding okay.Afebrile. Remains on room air. Call light within reach.
[2020-12-13 05:20] VITALS: BP 132/65
[2020-12-13 07:31] VITALS: BP 138/70
[2020-12-13 09:41] LABS: CALCIUM 8.7 mg/dL (8.5-10.1); CREATININE 0.6 mg/dL (0.6-1.0); MAGNESIUM 2.1 mg/dL (1.8-2.4); PHOSPHORUS 2.9 mg/dL (2.5-4.9)
--- NOTE | 2020-12-13 11:08 | NUR ---
Discussed during los with the hospitalist, dc today. Cm visited with chano at bedside after los, agreed wit hh but stated she not ready to dc home today, still not feeling well per chano. Cm left hh list of choice wit her, she picked [facility], referral [facility] to [facility]. Cm passed on information to bedside nurse about her not ready to dc and not feeling well.
--- NOTE | 2020-12-13 11:28 | NUR ---
ASSUMED PT CARE THIS AM. PT IS ALERT & ORIENTED X4. PT HAS IV SITE ON LFA RUNNING D5 1/2NS 30K @80ML/HR. PT USES BEDSIDE COMMODE. PT HAS TELE MONITOR ON. PER PT CAN ABLE TO WALK WITHOUT DEVICE. PT IS ON ROOM AIR. NO C/O OF NAUSEA AND VOMITING THIS AM. PT HAS SCOPOLAMINE ON R EAR. PT ON THE BED, BED ON THE LOWEST POSITION, SIDE RAILS UP, CALL LIGHT WITHIN REACH. WILL CONTINUE TO MONITOR PT. FOLLOW POC.
[2020-12-13 11:47] VITALS: BP 130/68
--- NOTE | 2020-12-13 12:01 | NUR ---
ASSUMED PT CARE THIS AM. PT IS ALERT & ORIENTED X4. PT HAS IV SITE ON LFA RUNNING D5 1/2 NS 30K @80ML/HR. PT USES BEDSIDE COMMODE. PT HAS POOR APPETITE. NO C/O OF NAUSEA AND VOMITING THIS AM. PT IS ON ROOM AIR. PT HAS SCOPOLAMINE PATCH ON R EAR. LAST BM WAS TODAY. PER PT ABLE TP WALK WITHOUT DEVICE. PT STATED SHE IS NOT READY FOR DC. WILL CONTINUE TO MONITOR PT. FOLLOW POC.
--- NOTE | 2020-12-13 12:43 | NUR ---
P.T. ORDERS RECEIVED FROM DR WILLOUGHBY AND Pt WAS EVAL 12/31/20 AND D/C FROM P.T. Pt DEMONSTRATED GOOD, SAFE OVERALL MOBILITY WITH NO DEVICE. P.T. THEN RE- CEIVED P.T. ORDERS FROM DR REDDING FOR EVAL AND TREAT TODAY. SPOKE WITH Pt'S NURSE, ROSE, REQUESTING TO WRITE IN NSG POC FOR NSG TO AMBULATE Pt 3X'S/DAY Pt DOES NOT REQUIRE SKILLED P.T. AT THIS TIME. SHE STATES THAT NSG WILL DO SO
[2020-12-13] MEDS ORDERED: ATIVAN0.5 M1 PO (13:15)
[2020-12-13] MEDS ORDERED: ONDANSETRON HCL8 MG PO ×2 (13:15→15:00)
[2020-12-13] MEDS ORDERED: Transderm-Scop 1MG/7 TRANSDERM (13:15)
[2020-12-13] MEDS ORDERED: MARINOL 2.5 MG2.5 M1 PO (13:15)
[2020-12-13] MEDS ORDERED: TRANSDERM-SCOP1 EACH TRANSDERM ×2 (13:15→15:00)
[2020-12-13] MEDS ORDERED: COMPAZINE10 MG PO ×2 (13:15→15:00)
[2020-12-13 13:24] VITALS: BP 130/68
--- NOTE | 2020-12-14 17:46 | HC ---
[facility] [place] [address] CONSULTATION Name: ALBERT MARTINEZN Room #: 445-P [facility] IN M.R.#: [id number] Admission: 12/10/20 Attend Phys: Sirisha Angulo MD Discharge: 12/13/20 Date of : 41 Report #: [id number] THIS REPORT FOR: cc: Ivelisse Denis DNP, Mary E. DNP Elia, Manana MD ~ DATE OF SERVICE: 12/11/2020 REASON FOR CONSULTATION: Non-Hodgkin's lymphoma, nausea and vomiting. REQUESTING PHYSICIAN: Sirisha Angulo MD HISTORY OF PRESENT ILLNESS: The patient is a pleasant 75-year-old woman who is undergoing chemotherapy for diffuse large cell lymphoma. She received third cycle of R-CHOP on 12/07. She developed nausea and vomiting. She was not able to keep food down and was admitted to the hospital for management of nausea, vomiting and dehydration. Oncology consult is requested. She is receiving IV Zofran, Phenergan had begun, still continues to have nausea. She says she is not better "at all." She feels the same as when she was admitted. She does not have fever or chills. Denies diarrhea. She has complaints of heartburn. She lost 15 pounds since she started chemotherapy. She says she has been having similar side effects after each cycle of chemo, but this time is much worse. PAST MEDICAL HISTORY: Significant for breast cancer, history of depression, diffuse large cell lymphoma, carpal tunnel syndrome, arthritis, osteoporosis. SOCIAL HISTORY: She lives independently. She does not smoke. Has very supportive daughter at bedside. FAMILY HISTORY: . REVIEW OF SYSTEMS: See above. PHYSICAL EXAMINATION: GENERAL: Reveals chronically ill-appearing woman, not in acute distress. VITAL SIGNS: Blood pressure 134/63, heart rate is 68, temperature 98.4, respirations 16. HEENT: Does not reveal thrush. NECK: Supple. HEART: Normal S1, S2. There is no supraclavicular or axillary lymphadenopathy. ABDOMEN: Soft, epigastric area mildly tender on palpation. EXTREMITIES: No edema. MENTAL STATUS: Alert and oriented x 3. LABORATORY AND DIAGNOSTIC DATA: White count 30.8, hemoglobin 8.8, platelets 142. Sodium 141, potassium 3.2, BUN 12, creatinine 0.8. UA negative. CT of [address] [place] [address] CONSULTATION Name: ALBERT MARTINEZ JOY Room #: 445-P [facility] IN .R.#: [id number] Admission: 12/10/20 Attend Phys: Sirisha Angulo MD Discharge: 12/13/20 Date of : 41 Report #: [id number] chest negative. ASSESSMENT AND PLAN: 1. Nausea and vomiting. Agree with management. Continue intravenous Zofran, Ativan as needed. Agree with GI consult. 2. Leukocytosis secondary to granulocyte-colony stimulating factor. 3. Hypokalemia. Receiving potassium supplementation as per the patient's hospitalist team. 4. Non-Hodgkin's lymphoma. Dr. Malagon will see the patient tomorrow. Dose of chemotherapy will be adjusted by Dr. Malagon as needed. Thank you very much for allowing me to participate in care of this patient. <ELECTRONICALLY SIGNED> By: My Donaldson MD 12/14/20 1746 [id number] My Donaldson MD /nt
== END 2020-12-13 16:00 | disposition home health service (06) | DRG 842 ==
LOC: ER 11:34 → EROBS 17:21 → 4S 17:21
PROVIDERS: Emergency Medicine; Internal Medicine Hematology & Oncology; ADMIT Internal Medicine; ATTEND Internal Medicine
DX: C83.30 Diffuse large B-cell lymphoma, unspecified site (principal); T45.1X5A Adverse effect of antineoplastic and immunosuppressive drugs, initial encounter; K29.70 Gastritis, unspecified, without bleeding; E87.6 Hypokalemia; D64.9 Anemia, unspecified; D72.829 Elevated white blood cell count, unspecified; K59.00 Constipation, unspecified; M19.90 Unspecified osteoarthritis, unspecified site; M81.0 Age-related osteoporosis without current pathological fracture; Z66 Do not resuscitate; F32.9 Major depressive disorder, single episode, unspecified; F41.9 Anxiety disorder, unspecified; R53.81 Other malaise; D72.823 Leukemoid reaction; G89.29 Other chronic pain; Y92.89 Other specified places as the place of occurrence of the external cause; Z85.3 Personal history of malignant neoplasm of breast; Z90.49 Acquired absence of other specified parts of digestive tract; Z88.6 Allergy status to analgesic agent; Z87.891 Personal history of nicotine dependence; Z20.822 Contact with and (suspected) exposure to COVID-19
CPT/HCPCS: 10100

== ENCOUNTER 2021-01-05 13:59 | Emergency (ER) | payer OTHER ==
[~2021-01-05] VITALS: Ht 154.9 cm; Wt 59.0 kg
[~2021-01-05 13:59] MED LIST changes: +ALLOPURINOL 30300 M1 PO; +ATIVAN0.5 M1 PO; +COMPAZINE10 MG PO; +MARINOL 2.5 MG2.5 M1 PO; +MS CONTIN 30 MG30 M1 PO; +NYSTATIN100000 UNI SW&SWALLOW; +ONDANSETRON HCL8 MG PO; +ROXICODONE15 MG PO; +TRANSDERM-SCOP1 EACH TRANSDERM; +Transderm-Scop 1MG/7 TRANSDERM
[2021-01-05 15:20] LABS: ABSOLUTE NEUTROPHILS 2.9 thou/uL (1.4-8.2); EOSINOPHILS 0.9 % (0.0-3.0); HEMATOCRIT 29.4 % (37.0-47.0); HEMOGLOBIN 9.9 gm/dL (12.0-15.0); LYMPHOCYTES 18.3 % (24.0-44.0); MCH 30.5 pg (26.0-34.0); MCHC 33.8 g/dL (28.0-37.0); MCV 90.4 fL (80.0-100.0); MONOCYTES 17.6 % (1.0-8.0); PLATELET COUNT 259 thou/uL (150-400); POLYS 62.2 % (36.0-66.0); RBC 3.25 mil/uL (4.20-5.00); RDW 19.3 % (10.5-14.5); WBC 4.6 thou/uL (4.0-11.0)
[2021-01-05 15:35] LABS: CALCIUM 9.1 mg/dL (8.5-10.1); CREATININE 0.8 mg/dL (0.6-1.0); POTASSIUM 3.2 mmol/L (3.5-5.1)
[2021-01-05 15:45] LABS: ALBUMIN 3.2 g/dL (3.4-5.0); DIRECT BILIRUBIN 0.2 mg/dL (<0.1-0.2); TOTAL BILIRUBIN 0.6 mg/dL (0.2-1.0); TOTAL PROTEIN 6.1 g/dL (6.4-8.2)
[2021-01-05] MEDS ORDERED: ROXICODONE15 MG PO (16:05)
[2021-01-05] MEDS ORDERED: CELEXA 20 MG TA20 MG PO (16:06)
[2021-01-05 17:51] LABS: URINE BILIRUBIN NEGATIVE (Negative); URINE BLOOD NEGATIVE (Negative); URINE CLARITY CLEAR; URINE COLOR YELLOW; URINE GLUCOSE-RANDOM* NEGATIVE (Negative); URINE KETONES TRACE (Negative); URINE LEUKOCYTES-REFLEX NEGATIVE (Negative); URINE NITRITE-REFLEX NEGATIVE (Negative); URINE PROTEIN (DIPSTICK) NEGATIVE (Negative); URINE SPECIFIC GRAVITY 1.015 (1.005-1.035)
[2021-01-05 18:50] VITALS: BP 150/93
--- NOTE | 2021-01-06 10:00 | EKG ---
[place] [id number] [email or web address] [address] ELECTROCARDIOGRAM REPORT Name: ALB[facility]ARTINEZ [id number] Admission: 01/05/21 Attend Phys: Discharge: 01/05/21 Date of : 41 Report #: [id number] [facility] ED Test Date: 2021-01-05 Test Time: 15:07:39 Pat Name: ALBERT MARTINEZ Department: Room: Gender: F [employer]ro[employer] Machine Operator: NEY ALMENDAREZ : 1945 Requested By: Nell Singh Order Number: [id number] MD: Giovanny Caban Measurements Intervals [place] Rate: 61 P: -7 SC: 122 QRS: 24 QRSD: 105 T: 34 QT: 462 QTc: 466 Interpretive Statements Sinus rhythm Nonspecific ST segment abnormalities Compared to ECG 12/10/2020 13:56:34 No significant changes Electronically Signed On 01-06-2021 10:00:28 CLAIM REPRESENTATIVE by Giovanny Caban [email or web address] <ELECTRONICALLY SIGNED> By: Giovanny Caban MD 01/06/21 1000 1507 1507 Giovanny Caban MD /EPI
== END 2021-01-05 19:01 | disposition home or self-care (01) ==
LOC: ER 13:59
PROVIDERS: Emergency Medicine
DX: E86.0 Dehydration (principal); Z85.3 Personal history of malignant neoplasm of breast; Z79.891 Long term (current) use of opiate analgesic; Z79.899 Other long term (current) drug therapy; Z79.82 Long term (current) use of aspirin; Z88.5 Allergy status to narcotic agent